=== PATIENT | female | born 1980 | race Asian ===

== ENCOUNTER 2020-09-05 15:53 | Emergency (ER) | payer MEDICAID ==
[~2020-09-05] VITALS: Ht 162.6 cm; Wt 63.0 kg
[~2020-09-05 15:53] MED LIST: PARO40TA
[2020-09-05] MEDS ORDERED: TRAMADOL 50MG TABLET PO ONE (18:15)
[2020-09-05] MEDS ORDERED: KETOROLAC 60MG/2ML VIAL IM ONE (18:15)
[2020-09-05] MEDS ORDERED: HYDROCODONE/APAP 7.5/325MG 1 TAB TABLET PO ONE (23:15)
[2020-09-05 23:57] VITALS: BP 120/87
== END 2020-09-06 00:08 | disposition home or self-care (01) ==
LOC: ER 15:53
DX: S86.011A Strain of right Achilles tendon, initial encounter (principal); F32.9 Major depressive disorder, single episode, unspecified; F12.10 Cannabis abuse, uncomplicated; Z90.49 Acquired absence of other specified parts of digestive tract; Z90.89 Acquired absence of other organs; W19.XXXA Unspecified fall, initial encounter; Y93.89 Activity, other specified; Y92.89 Other specified places as the place of occurrence of the external cause
CPT/HCPCS: 76881; 93005; 93971; 99284; J1885; Z7610